=== PATIENT | male | born 1985 | race Caucasian/White ===

== ENCOUNTER 2022-03-07 17:51 | Emergency (ER) | payer SELFPAY ==
[~2022-03-07] VITALS: Ht 188 cm; Wt 80.0 kg
[~2022-03-07 17:51] MED LIST: CLINDAMYCIN300 M1 PO; KETOCONAZOLE2 % EX; NAPROSYN500 MG PO
[2022-03-07] MEDS ORDERED: AMOXICILLIN500 MG PO (19:11)
[2022-03-07 19:16] VITALS: BP 121/81
== END 2022-03-07 19:39 | disposition home or self-care (01) | DRG 605 ==
LOC: ED 17:51
PROC: 0HQ1XZZ Repair Face Skin, External Approach (ICD-10-PCS; principal; 2022-03-07)
DX: S01.81XA Laceration without foreign body of other part of head, initial encounter (principal); V95.9XXA Unspecified aircraft accident injuring occupant, initial encounter